=== PATIENT | male | born 1995 | race Caucasian/White ===

== ENCOUNTER 2023-06-21 23:42 | Emergency (ER) | payer BC ==
[~2023-06-21] VITALS: Ht 180.3 cm; Wt 66.8 kg
[2023-06-22 01:56] VITALS: TEMP 98.1
[2023-06-22 06:15] VITALS: BP 118/70; O2SAT 100
== END 2023-06-22 06:22 | disposition home or self-care (01) ==
LOC: M ED 23:42
DX: S92.511A Displaced fracture of proximal phalanx of right lesser toe(s), initial encounter for closed fracture (principal); X58.XXXA Exposure to other specified factors, initial encounter; Y92.009 Unspecified place in unspecified non-institutional (private) residence as the place of occurrence of the external cause; Y93.01 Activity, walking, marching and hiking; Z88.1 Allergy status to other antibiotic agents; Z88.8 Allergy status to other drugs, medicaments and biological substances

== ENCOUNTER → 2024-04-09 | Outpatient (CLI) | payer BC | LOC: M WUC 14:18 | PROVIDERS: ATTEND Internal Medicine Gastroenterology | DX: K91.850 Pouchitis (principal) ==

== ENCOUNTER → 2025-02-17 | Outpatient (CLI) | payer BC | LOC: M RAD 13:51 | PROVIDERS: ATTEND Internal Medicine Gastroenterology | DX: K50.80 Crohn's disease of both small and large intestine without complications (principal) ==

== ENCOUNTER → 2025-03-27 | Outpatient (CLI) | payer BC ==
[~2025-03-27] MED LIST: GASTROGRAFIN SOLUTION 30 ML As Ordered ONE; LIQUID POLIBAR PLUS 105% w/v 750 ML BTL As Ordered ONE
== END ==
LOC: M RAD 08:18
PROVIDERS: ATTEND Internal Medicine Gastroenterology
DX: K56.699 Other intestinal obstruction unspecified as to partial versus complete obstruction (principal); Z90.49 Acquired absence of other specified parts of digestive tract; Z98.0 Intestinal bypass and anastomosis status
CPT/HCPCS: 74270; Q9963

== ENCOUNTER 2025-04-24 09:20 | Emergency (ER) | payer BC ==
[~2025-04-24] VITALS: Ht 180.3 cm; Wt 70.7 kg
[2025-04-24] MEDS ORDERED: STEL90IN (09:33)
[2025-04-24] MEDS: LIDOCAINE 1% MDV 20 ML VIAL IM ONE (10:23)
[2025-04-24] MEDS: TETANUS/DIPHTH/ACEL. PERTUSSIS 0.5 ML SYR IM.IMMUN ONE (10:24)
[2025-04-24 11:05] VITALS: BP 126/70; TEMP 98.8; O2SAT 99
== END 2025-04-24 11:10 | disposition home or self-care (01) ==
LOC: M ED 10:57
DX: S61.212A Laceration without foreign body of right middle finger without damage to nail, initial encounter (principal); Y92.9 Unspecified place or not applicable; Y93.9 Activity, unspecified; Y99.9 Unspecified external cause status; W26.8XXA Contact with other sharp object(s), not elsewhere classified, initial encounter; Z23 Encounter for immunization; Z88.1 Allergy status to other antibiotic agents; Z88.8 Allergy status to other drugs, medicaments and biological substances; Z79.899 Other long term (current) drug therapy

== ENCOUNTER → 2025-05-28 | Outpatient (CLI) | payer BC ==
[~2025-05-28] MED LIST changes: -GASTROGRAFIN SOLUTION 30 ML As Ordered ONE; -LIQUID POLIBAR PLUS 105% w/v 750 ML BTL As Ordered ONE; +STEL90IN
== END ==
LOC: M PLALAB 09:57
PROVIDERS: ATTEND Advanced Practice Midwife
DX: Z31.440 Encounter of male for testing for genetic disease carrier status for procreative management (principal)

== ENCOUNTER → 2025-06-30 | Outpatient (CLI) | payer BC | LOC: M PLALAB 14:50 | PROVIDERS: ATTEND Advanced Practice Midwife | DX: Z31.440 Encounter of male for testing for genetic disease carrier status for procreative management (principal) ==